=== PATIENT | male | born 1935 ===

== ENCOUNTER 2017-05-18 05:30 | Day surgery (SDC) | payer OTHER ==
[~2017-05-18 05:30] MED LIST: CIPRO500 MG PO; ENALAPRIL MALEA20 MG PO; HYDROCHLOROTH12.5 M1 PO; INTESTINEX680 MG PO; NAMENDA XR28 MG PO; RANITIDINE HCL300 MG PO; [UNRECOGNIZED DRUG - OTHER] PO
== END 2017-05-18 09:00 | disposition home or self-care (01) ==
LOC: AMB-ENDOS 05:30
DX: D12.4 Benign neoplasm of descending colon (principal); K57.30 Diverticulosis of large intestine without perforation or abscess without bleeding; K92.1 Melena; K64.2 Third degree hemorrhoids